=== PATIENT | female | born 1985 | race Caucasian/White ===

== ENCOUNTER 2022-06-17 08:53 | Emergency (ER) | payer MEDICAID, OTHER ==
[~2022-06-17] VITALS: Ht 152.4 cm; Wt 63.6 kg
[2022-06-17 09:04] VITALS: BP 162/72
[2022-06-17] MEDS ORDERED: NS 1,000 ML IV ONE (09:15)
[2022-06-17] MEDS ORDERED: MORPHINE 4 MG/ML 1ML VIAL IV ONE (09:15)
[2022-06-17 09:46] LABS: BASO % 0.4 % (0.0-1.0); HEMATOCRIT 45.3 % (36.0-47.0); HEMOGLOBIN 14.9 g/dl (12.0-15.5); LYMPH # 2.2 10^3/uL (1.5-5.0); MEAN CORPUSCULAR HEMOGLOBIN 30.5 pg (27.0-33.0); MEAN CORPUSCULAR HGB CONC 32.9 g/dl (32.0-36.5); MEAN CORPUSCULAR VOLUME 92.6 fl (80.0-96.0); MONO # 0.5 10^3/uL (0.0-0.8); MONO % 6.2 % (2.0-8.0); NEUTROPHILS # 5.7 10^3/uL (1.5-8.5); NEUTROPHILS % 67.2 % (36.0-66.0); PLATELET COUNT, AUTOMATED 271 10^3/uL (150-450); RED BLOOD COUNT 4.89 10^6/uL (4.00-5.40); WHITE BLOOD COUNT 8.4 10^3/uL (4.0-10.0)
[2022-06-17 10:09] LABS: HCG, SERUM QUANTITATIVE < 2.6 MIU/ML (<4.2)
[2022-06-17 11:03] LABS: BLOOD UREA NITROGEN 21 MG/DL (9-23); CALCIUM LEVEL 9.1 MG/DL (8.5-10.1); CARBON DIOXIDE LEVEL 27 MMOL/L (20-31); CHLORIDE LEVEL 103 MMOL/L (98-107); CREATININE FOR GFR 0.78 MG/DL (0.55-1.30); GLOMERULAR FILTRATION RATE > 60.0 (>60); GLUCOSE, FASTING 115 MG/DL (60-100); POTASSIUM SERUM 4.4 MMOL/L (3.5-5.1); SODIUM LEVEL 139 MMOL/L (136-145)
[2022-06-17] MEDS ORDERED: KETOROLAC 30 MG/ML 1ML VIAL IV ONE (11:05)
[2022-06-17] MEDS ORDERED: KETO10TAB PO (12:43)
[2022-06-18] MEDS ORDERED: LIDO5DIS41 TD (02:07)
== END 2022-06-17 13:10 | disposition home or self-care (01) ==
LOC: M ED 08:53 → EDBD 08:53 → M ED 13:10
DX: N93.8 Other specified abnormal uterine and vaginal bleeding (principal); R10.2 Pelvic and perineal pain

== ENCOUNTER 2022-06-17 20:46 | Emergency (ER) | payer MEDICAID, OTHER ==
[~2022-06-17] VITALS: Ht 152.4 cm; Wt 59.1 kg
[~2022-06-17 20:46] MED LIST: KETO10TAB PO
[2022-06-18 00:05] VITALS: BP 156/78
[2022-06-18] MEDS ORDERED: KETOROLAC 60MG 2ML VIAL IM ONE (00:30)
[2022-06-18] MEDS ORDERED: LIDO5DIS41 TD (02:07)
[2022-06-18] MEDS ORDERED: LIDOCAINE 5% (LIDODERM) PATCH TD ONE (02:10)
== END 2022-06-18 02:25 | disposition home or self-care (01) ==
LOC: M ED 20:46
DX: R07.89 Other chest pain (principal); Z87.81 Personal history of (healed) traumatic fracture; F17.200 Nicotine dependence, unspecified, uncomplicated; F19.10 Other psychoactive substance abuse, uncomplicated

== ENCOUNTER 2022-06-18 14:13 | Emergency (ER) | payer OTHER ==
[~2022-06-18 14:13] MED LIST changes: +LIDO5DIS41 TD
== END 2022-06-18 14:33 | disposition left against medical advice (07) ==
LOC: M ED 14:13
DX: Z53.21 Procedure and treatment not carried out due to patient leaving prior to being seen by health care provider (principal)